=== PATIENT | male | born 1975 | race Caucasian/White ===

== ENCOUNTER 2020-12-28 02:57 | Emergency (ER) | payer OTHER ==
[2020-12-28] MEDS ORDERED: Bacitracin 1 PK ONE (03:19)
[2020-12-28] MEDS ORDERED: Lidocaine 1% (PF) 30 ML VIAL ONE (03:19)
[2020-12-28] MEDS ORDERED: Acetaminophen 500 MG TAB ONE (04:03)
--- NOTE | 2020-12-28 07:49 | CT ---
PRELIMINARY REPORT/[facility]/EMERGENCY AFTER HOURS PROCEDURE: EXAM: CT Head Without Intravenous Contrast. CLINICAL HISTORY: FALL; LAC ABOVE RIGHT EYE. NO LOC TECHNIQUE: Axial computed tomography images of the head/brain without intravenous contrast. COMPARISON: None provided. FINDINGS: BRAIN: No acute intraparenchymal hemorrhage. No mass lesion. No CT evidence for acute territorial infarct. N o midline shift or extra-axial collection. VENTRICLES: No hydrocephalus. ORBITS: The orbits are unremarkable. SINUSES AND MASTOIDS: There is a mild mucosal thickening in the right maxillary sinus. SOFT TISSUES: No significant facial or scalp soft tissue swelling evident. No radiopaque foreign body is seen. BONES: No acute skull fracture. IMPRESSION: No acute intracranial abnormality. ELECTRONICALLY SIGNED BY: Garrick Chan MD Dec 28, 2020 4:29:22 AM [employer] This report is intended for review by the ordering physician only, in accordance of law. If you recei ve this report in error, please call [facility] at [phone]. FINAL REPORT EMERGENCY AFTER HOURS CT BRAIN: IMPRESSION: I agree with the preliminary interpretation given by [facility]. No evidence for intracranial hemorrhage or mass effect. POS: JUAN JOSE
== END 2020-12-28 04:22 | disposition home or self-care (01) ==
LOC: NAV ERS 02:57
DX: S01.81XA Laceration without foreign body of other part of head, initial encounter (principal); E66.9 Obesity, unspecified; Z79.899 Other long term (current) drug therapy; W01.198A Fall on same level from slipping, tripping and stumbling with subsequent striking against other object, initial encounter
CPT/HCPCS: 12013; 70450; J2001